=== PATIENT | female | born 1965 | race Caucasian/White ===

== ENCOUNTER 2017-01-28 13:28 | Emergency (ER) | payer BC, OTHER ==
[~2017-01-28] VITALS: Ht 154.9 cm; Wt 67.1 kg
[2017-01-28] MEDS ORDERED: ONDANSETRON HCL/PF 4 MG/2 ML VIAL IVP ONE (14:00)
[2017-01-28] MEDS ORDERED: LORAZEPAM 1 MG TABLET ONE (14:00)
[2017-01-28] MEDS ORDERED: LORAZEPAM 1 MG TABLET PO ONE (14:00)
[2017-01-28] MEDS ORDERED: IV SET PRIMARY 1 EA INFUS.SET MC ONE (14:00)
[2017-01-28] MEDS ORDERED: ONDANSETRON HCL/PF 4 MG/2 ML VIAL ONE (14:00)
[2017-01-28] MEDS ORDERED: IV NS 0.9% 1,000 ML ONE (14:00)
[2017-01-28] MEDS ORDERED: IV NS 0.9% 1,000 ML BAG IV ONE (14:00)
--- NOTE | 2017-01-28 14:00 | NUR ---
PT BIB DAUGHTER FOR N/V [employer] OFFICE [employer]PERVIS[employer] AND ALOC. PER DAUGHTER, PT IS NORMALLY A/OX4 BUT NOW IS UNABLE TO DESCRIBE HER SYMPTOMS OR WHY SHE CAME INTO THE ER TODAY. RESP EVEN UNLABORED. SKIN WARM NONDIAPHORETIC. NO VOMITING NOTED, DENIES NAUSEA. AMBULATORY WITH STEADY GAIT. IN ER BED 07.
[2017-01-28 14:10] LABS: BASOPHILS # (AUTO) 0.1 /CMM (0.0-0.2); BASOPHILS % (AUTO) 0.4 % (0.0-2.0); EOSINOPHILS # (AUTO) 0.1 /CMM (0.0-0.7); EOSINOPHILS % (AUTO) 0.7 % (0.0-6.0); HEMATOCRIT 43 % (33-45); HEMOGLOBIN 14.6 g/dL (11.5-14.8); LYMPHOCYTES # (AUTO) 1.5 /CMM (0.8-4.8); LYMPHOCYTES % (AUTO) 11.2 % (20.0-44.0); MEAN CORPUSCULAR HEMOGLOBIN 32 PG (26.0-33.0); MEAN CORPUSCULAR HGB CONC 34 g/dl (31.0-36.0); MEAN CORPUSCULAR VOLUME 92 fL (82-100); MONOCYTES # (AUTO) 0.5 /CMM (0.1-1.30); MONOCYTES % (AUTO) 3.7 % (2.0-12.0); NEUTROPHILS # (AUTO) 11.4 /CMM (1.8-8.9); PLATELET COUNT (AUTO) 284 /CMM (150-450); RDW COEFFICIENT OF VARIATION 12.7 (11.5-15.0); RED BLOOD CELL COUNT(AUTO) 4.62 MIL/uL (4.0-5.2); WHITE BLOOD COUNT (AUTO) 13.6 K/uL (4.3-11.0)
[2017-01-28 14:15] LABS: CALCIUM, SERUM 8.8 mg/dL (8.5-10.1); CARBON DIOXIDE 30 mmol/L (21-32); CHLORIDE 104 mmol/L (98-107); CREATININE 0.8 mg/dL (0.6-1.3); GFR 75 mL/min (>60); GLUCOSE 124 mg/dL (74-106); POTASSIUM 3.3 mmol/L (3.5-5.1); SODIUM SERUM 139 mmol/L (136-145); UREA NITROGEN, BLOOD 14 mg/dL (7-18)
[2017-01-28 14:20] LABS: ALANINE AMINOTRANSFERASE 54 U/L (12-78); ALBUMIN 3.7 g/dL (3.4-5.0); ALKALINE PHOSPHATASE 101 U/L (46-116); ASPARTATE AMINOTRANSFERASE 32 U/L (15-37); BILIRUBIN,DIRECT 0.1 mg/dL (0.0-0.2); BILIRUBIN,TOTAL 0.1 mg/dL (0.2-1.0); LIPASE 145 U/L (73-393); TOTAL PROTEIN, SERUM 7.2 g/dL (6.4-8.2)
[2017-01-28 14:23] LABS: TROPONIN I < 0.017 ng/mL (0.00-0.056)
[2017-01-28 14:43] LABS: PREGNANCY TEST URINE QUAL NEGATIVE (NEGATIVE)
[2017-01-28 14:46] LABS: APPEARANCE,URINE Clear (CLEAR); BILIRUBIN,URINE Negative (NEGATIVE); BLOOD, URINE Trace-intact Ery/uL (NEGATIVE); COLOR,URINE Yellow (YELLOW); KETONES,URINE Negative (NEGATIVE); LEUKOCYTE ESTERASE ,URINE Negative (NEGATIVE); NITRITE, URINE Negative (NEGATIVE); PROTEIN,URINE Negative (NEGATIVE); RBC,URINE 0-2 /HPF (0-2); UGLUCOSE Negative (NEGATIVE); UROBILINOGEN,URINE 0.2 EU/dL (0.2)
[2017-01-28 14:47] LABS: ADD URINE CULTURE NO; BACTERIA,URINE None seen /HPF (None Seen); SQUAMOUS EPITHELIAL CELL,UR None Seen /HPF (None Seen); WBC,URINE 0-2 /HPF (0-3)
--- NOTE | 2017-01-28 15:07 | NUR ---
RESTING QUIETLY, NAD NOTED. ALL NEEDS ATTENDED TO.
[2017-01-28 16:00] VITALS: BP 122/81
--- NOTE | 2017-01-28 16:00 | NUR ---
Patient discharged to home in stable condition. Written and verbal after care instructions given. Patient verbalizes understanding of instruction. IV removed. Catheter intact and site benign. Pressure and 4x4 applied to site. No bleeding noted. AMBULATORY WITH STEADY GAIT. NAD NOTED. VSS.
== END 2017-01-28 16:01 | disposition home or self-care (01) ==
LOC: ER 13:32
DX: R53.81 Other malaise (principal); F41.9 Anxiety disorder, unspecified
CPT/HCPCS: 36415; 71010; 80048; 80076; 81001; 83690; 84484; 84703; 85025; 93005; 96361; 96374; 99285; A4606; J2405; J7030; Z7610; 81000-TC

== ENCOUNTER 2017-01-29 23:29 | Emergency (ER) | payer BC, OTHER ==
[~2017-01-29] VITALS: Ht 152.4 cm; Wt 68.0 kg
[2017-01-30 00:38] VITALS: BP 130/84
[2017-01-30] MEDS ORDERED: LORAZEPAM 1 MG TABLET ONE (01:52)
[2017-01-30] MEDS ORDERED: LORAZEPAM 1 MG TABLET PO ONE (02:00)
== END 2017-01-30 02:44 | disposition home or self-care (01) ==
LOC: ER 23:32
DX: F43.9 Reaction to severe stress, unspecified (principal)
CPT/HCPCS: A4606; Z7610

== ENCOUNTER 2018-07-09 10:42 | Outpatient (CLI) | payer BC ==
[2018-07-09 11:53] LABS: APPEARANCE,URINE SL CLOUDY (CLEAR); BILIRUBIN,URINE NEGATIVE (NEGATIVE); BLOOD, URINE NEGATIVE Ery/uL (NEGATIVE); COLOR,URINE YELLOW (YELLOW); KETONES,URINE NEGATIVE (NEGATIVE); LEUKOCYTE ESTERASE ,URINE 2+ (NEGATIVE); NITRITE, URINE NEGATIVE (NEGATIVE); PROTEIN,URINE NEGATIVE (NEGATIVE); UGLUCOSE NEGATIVE (NEGATIVE); UROBILINOGEN,URINE 0.2 EU/dL (0.2)
[2018-07-09 12:08] LABS: BACTERIA,URINE Moderate /HPF (None Seen); RBC,URINE 0-2 /HPF (0-2); SQUAMOUS EPITHELIAL CELL,UR Few /HPF (None Seen)
[2018-07-09 12:09] LABS: ALBUMIN 3.6 g/dL (3.4-5.0); BILIRUBIN,TOTAL 0.4 mg/dL (0.2-1.0); CALCIUM, SERUM 9.1 mg/dL (8.5-10.1); CREATININE 0.7 mg/dL (0.6-1.3); POTASSIUM 4.5 mmol/L (3.5-5.1); TOTAL PROTEIN, SERUM 7.3 g/dL (6.4-8.2)
[2018-07-09 12:10] LABS: BASOPHILS % (AUTO) 0.1 % (0.0-2.0); EOSINOPHILS % (AUTO) 0.1 % (0.0-6.0); HEMATOCRIT 46 % (33-45); HEMOGLOBIN 15.4 g/dL (11.5-14.8); LYMPHOCYTES # (AUTO) 1.2 /CMM (0.8-4.8); LYMPHOCYTES % (AUTO) 12.5 % (20.0-44.0); MEAN CORPUSCULAR HEMOGLOBIN 31 PG (26.0-33.0); MEAN CORPUSCULAR HGB CONC 34 g/dl (31.0-36.0); MEAN CORPUSCULAR VOLUME 93 fL (82-100); MONOCYTES # (AUTO) 0.3 /CMM (0.1-1.30); MONOCYTES % (AUTO) 2.8 % (2.0-12.0); NEUTROPHILS # (AUTO) 7.8 /CMM (1.8-8.9); NEUTROPHILS % (AUTO) 84.5 % (43.0-81.0); PLATELET COUNT (AUTO) 319 /CMM (150-450); RDW COEFFICIENT OF VARIATION 12.5 (11.5-15.0); RED BLOOD CELL COUNT(AUTO) 4.95 MIL/uL (4.0-5.2); WHITE BLOOD COUNT (AUTO) 9.3 K/uL (4.3-11.0)
[2018-07-09 12:15] LABS: THYROID STIMULATING HORMONE 0.977 uIU/mL (0.358-3.74)
== END 2018-07-09 23:59 | disposition home or self-care (01) ==
LOC: LAB 10:42
PROVIDERS: ATTEND Family Medicine
DX: Z00.01 Encounter for general adult medical examination with abnormal findings (principal); Z11.59 Encounter for screening for other viral diseases; M43.16 Spondylolisthesis, lumbar region; M41.85 Other forms of scoliosis, thoracolumbar region
CPT/HCPCS: 72100-TC; 80053-TC; 80061-TC; 81000-TC; 82652; 84439-TC; 84443-TC; 85025-TC; 86592; 86706; 86709-TC; 86803; 87086-TC; 87491; 87591; 87806

== ENCOUNTER 2018-10-28 10:00 | Outpatient (CLI) | payer BC ==
[2018-10-28 10:49] LABS: BASOPHILS # (AUTO) 0.1 /CMM (0.0-0.2); BASOPHILS % (AUTO) 0.9 % (0.0-2.0); EOSINOPHILS % (AUTO) 0.7 % (0.0-6.0); HEMATOCRIT 44 % (33-45); HEMOGLOBIN 14.8 g/dL (11.5-14.8); LYMPHOCYTES # (AUTO) 1.9 /CMM (0.8-4.8); LYMPHOCYTES % (AUTO) 30.2 % (20.0-44.0); MEAN CORPUSCULAR HGB CONC 33 g/dl (31.0-36.0); MEAN CORPUSCULAR VOLUME 95 fL (82-100); MONOCYTES # (AUTO) 0.4 /CMM (0.1-1.30); MONOCYTES % (AUTO) 6.4 % (2.0-12.0); NEUTROPHILS % (AUTO) 61.8 % (43.0-81.0); PLATELET COUNT (AUTO) 293 /CMM (150-450); RED BLOOD CELL COUNT(AUTO) 4.66 MIL/uL (4.0-5.2); WHITE BLOOD COUNT (AUTO) 6.4 K/uL (4.3-11.0)
[2018-10-28 11:04] LABS: ALBUMIN 3.6 g/dL (3.4-5.0); BILIRUBIN,TOTAL 0.4 mg/dL (0.2-1.0); CALCIUM, SERUM 9.2 mg/dL (8.5-10.1); CREATININE 0.8 mg/dL (0.6-1.3); POTASSIUM 3.9 mmol/L (3.5-5.1); TOTAL PROTEIN, SERUM 7.2 g/dL (6.4-8.2)
[2018-10-28 11:11] LABS: THYROID STIMULATING HORMONE 1.839 uIU/mL (0.358-3.74)
== END 2018-10-28 23:59 | disposition home or self-care (01) ==
LOC: US 10:00
PROVIDERS: ATTEND Family Medicine
DX: N26.1 Atrophy of kidney (terminal) (principal); K76.89 Other specified diseases of liver
CPT/HCPCS: 36415; 76700-TC; 76856-TC; 80053-TC; 84443-TC; 85025-TC

== ENCOUNTER 2021-08-22 11:42 | Emergency (ER) | payer SELFPAY ==
[~2021-08-22] VITALS: Ht 154.9 cm; Wt 66.2 kg
--- NOTE | 2021-08-22 11:55 | NUR ---
PT CAME TO ER C/P DIZZINESS AND WEAKNESS SINCE LAST NIGHT. PT SAYS SHE FELT LIKE SHE WAS ABOUT TO FALL WHEN SHE WAS WALKING AND TOOK A SHOWER. PT RECEIVED THE COVID VACCCINE SUNDAY, THEN REPORTS VOMITING AND CONSISTENTLY ELEVATED BP IN THE 150s FOR 1 DAY. SHE REPORTS HER BP TO BE NORMALLY IN THE 120s. DENIES HEADACHE, FEVER. A&OX4. BREATHING EVEN AND UNLABORED. PULSES 2+ BILATERALLY, STRENGTH 5/5 IN ALL EXTREMITIES.
--- NOTE | 2021-08-22 12:19 | NUR ---
BLOOD SAMPLE OBTAINED AND SENT TO LAB
[2021-08-22 12:25] LABS: BASOPHILS # (AUTO) 0.1 K/uL (0.0-0.2); BASOPHILS % (AUTO) 0.8 % (0.0-2.0); EOSINOPHILS % (AUTO) 0.2 % (0.0-6.0); HEMATOCRIT 45 % (33-45); LYMPHOCYTES % (AUTO) 23.5 % (20.0-44.0); MEAN CORPUSCULAR HGB CONC 33 g/dl (31.0-36.0); MEAN CORPUSCULAR VOLUME 96 fL (82-100); MONOCYTES # (AUTO) 0.5 K/uL (0.1-1.30); MONOCYTES % (AUTO) 6.1 % (2.0-12.0); NEUTROPHILS % (AUTO) 69.4 % (43.0-81.0); PLATELET COUNT (AUTO) 343 K/uL (150-450); RED BLOOD CELL COUNT(AUTO) 4.66 MIL/uL (4.0-5.2); WHITE BLOOD COUNT (AUTO) 8.6 K/uL (4.3-11.0)
[2021-08-22 12:33] LABS: CALCIUM, SERUM 9.2 mg/dL (8.5-10.1); CARBON DIOXIDE 27 mmol/L (21-32); CHLORIDE 107 mmol/L (98-107); CREATININE 0.8 mg/dL (0.6-1.3); GLUCOSE 102 mg/dL (74-106); POTASSIUM 3.7 mmol/L (3.5-5.1); SODIUM SERUM 142 mmol/L (136-145); UREA NITROGEN, BLOOD 11 mg/dL (7-18)
[2021-08-22 12:45] LABS: ALANINE AMINOTRANSFERASE 63 U/L (12-78); ALBUMIN 3.7 g/dL (3.4-5.0); ALKALINE PHOSPHATASE 107 U/L (46-116); ASPARTATE AMINOTRANSFERASE 36 U/L (15-37); BILIRUBIN,DIRECT 0.1 mg/dL (0.0-0.2); BILIRUBIN,TOTAL 0.3 mg/dL (0.2-1.0); TOTAL PROTEIN, SERUM 7.7 g/dL (6.4-8.2)
--- NOTE | 2021-08-22 13:18 | NUR ---
Patient discharged to home in stable condition. Written and verbal after care instructions given. Patient verbalizes understanding of instruction.
--- NOTE | 2021-08-22 13:18 | NUR ---
IV removed. Catheter intact and site benign. Pressure and 4x4 applied to site. No bleeding noted.
[2021-08-22 13:28] VITALS: BP 122/86
== END 2021-08-22 13:18 | disposition home or self-care (01) ==
LOC: ER 11:49
DX: F43.9 Reaction to severe stress, unspecified (principal); R42 Dizziness and giddiness
CPT/HCPCS: 36415; 80048-TC; 80076-TC; 84484-TC; 85025-TC